=== PATIENT | male | born 1995 | race Caucasian/White ===

== ENCOUNTER 2016-08-04 18:34 | Emergency (ER) | payer OTHER ==
[~2016-08-04] VITALS: Ht 185.4 cm; Wt 83.8 kg
[~2016-08-04 18:34] MED LIST: HYDR-5688 PO
[2016-08-04 18:37] VITALS: BP 151/85; PULSE 105; TEMP 37.3; O2SAT 98; Ht 185.4 cm; Wt 83.8 kg
[2016-08-04] MEDS ORDERED: MULT1CHW4 PO (19:10)
[2016-08-04] MEDS ORDERED: IBUPROFEN 600 MG TAB PO ONE (19:45)
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
== END 2016-08-04 20:28 | disposition home or self-care (01) ==
LOC: C.EDB 18:36 → C.EDD 20:28
DX: S01.01XA Laceration without foreign body of scalp, initial encounter (principal); Y04.0XXA Assault by unarmed brawl or fight, initial encounter; M25.522 Pain in left elbow; M25.531 Pain in right wrist